=== PATIENT | female | born 1970 | race Caucasian/White ===

== ENCOUNTER 2022-09-08 08:31 | Outpatient (CLI) | payer OTHER, SELFPAY ==
[2022-09-08 14:03] LABS: Basophils Absolute Auto 0.03 K/uL (0.00-0.30); Basophils Percent Auto 0.5 % (0.0-3.0); Eosinophils Absolute Auto 0.09 K/uL (0.00-0.50); Eosinophils Percent Auto 1.4 % (0.0-7.0); Hematocrit 43.4 % (33.0-51.0); Hemoglobin* 14.3 gm/dL (12.0-16.0); Lymphocytes Percent Auto 28.7 % (20-44); Mean Corpuscular HGB Conc 33 gm/dL (32-36); Mean Corpuscular Hemoglobin 29 pg (26-34); Mean Corpuscular Volume 88 fL (80-100); Monocytes Percent Auto 5.7 % (0.0-11.0); Neutrophils Percent Auto 63.7 % (42.0-72.0); Platelet Count* 313 K/uL (140-440); RDW Coefficient of Variation % 12.2 % (11.5-15.5); Red Blood Count 4.91 m/uL (4.00-5.20); White Blood Count* 6.28 K/uL (4.50-11.00)
[2022-09-08 14:09] LABS: Slide Review Reflex No
[2022-09-08 14:14] LABS: Albumin* 4.3 g/dL (3.3-5.0); Chloride* 107 mmol/L (96-114); Potassium* 5.1 mmol/L (3.6-5.1); Sodium* 140 mmol/L (135-149)
[2022-09-08 14:17] LABS: Alanine Aminotransferase* 21 U/L (4-35); Alkaline Phosphatase* 54 U/L (40-150); Aspartate Amino Transferase* 23 U/L (12-35); Bilirubin Total* 0.6 mg/dL (0.1-1.5); Blood Urea Nitrogen* 13 mg/dL (7-30); Calcium* 9.3 mg/dL (8.4-10.6); Carbon Dioxide* 26 mmol/L (20-32); Creatinine* 0.6 mg/dL (0.5-1.5); Estimated Glomerular Filt Rate 109 ml/min; Glucose* 95 mg/dL (60-115); Total Protein* 6.9 g/dL (6.0-8.3)
[2022-09-08 14:28] LABS: Vitamin D 25 Hydroxy* 33 ng/mL (30-80)
[2022-09-09 17:19] LABS: Estradiol Premenol Female 89 pg/mL
[2022-09-10 11:37] LABS: Follicle Stimulating Hormone 21.5 IU/L
[2022-09-10 18:42] LABS: Luteinizing Hormone, Serum 16.2 IU/L
== END 2022-09-08 08:32 | disposition home or self-care (01) ==
PROVIDERS: PCP Family Medicine; Visit Provider Family Medicine
DX: R53.83 Other fatigue (principal); N95.1 Menopausal and female climacteric states; E55.9 Vitamin D deficiency, unspecified
CPT/HCPCS: 80053; 82306; 82670; 82728; 83001; 83002; 84443; 85025

== ENCOUNTER 2024-01-18 12:30 | Outpatient (CLI) | payer BC, SELFPAY ==
--- OUTSIDE RECORDS SUMMARY | 2024-01-18 12:32 | XMS_ITS | Clinical Summary ---
Author Name Unknown Organization [facility] Address [place], [place] [address] Care Team Providers Care Office Workforce Planner Name Role Phone Serene Toussaint NP Primary Care Provider [phone] Allergies Active Allergy Reactions Criticality Noted Date Comments Amoxicillin Rash 11/29/2006 Cefaclor Rash 11/29/2006 Diatrizoate Allergen Vomiting 09/21/2014 Erythromycin Rash 11/29/2006 Levofloxacin Rash 09/25/2014 Cyproheptadine Rash 11/29/2006 Tetracycline Rash 11/29/2006 Medications Medication Sig Dispensed Refills Start Date End Date Status SEMIWEEKLY patch estradiol 0.05 mg/24 hr SEMIWEEKLY transdermal patch Apply 1 Patch on dry, clean, hairless skin. 03/15/2023 Active cyclobenzaprine (FLEXERIL) 5 mg tablet Take 2 Tablets by mouth three times a day as needed for Muscle Spasms 10/19/2023 Active HYDROcodone-acetam inophen (5-325 mg/tablet) Take 1-2 Tablets by mouth every six hours as needed for Pain. Limit acetaminophen to 4000 mg per day from all sources. 10/19/2023 Active celecoxib (CELEBREX) 200 mg capsuleIndications :Lumbar facet arthropathy Take 1 Capsule (200 mg) by mouth two times daily with meals. 60 Capsule 2 12/09/2023 Active Active Problems Problem Noted Date Diagnosed Date Stress incontinence 10/28/2022 Environmental allergies 10/28/2022 Overview: wheat, birch, mugwart, mites oral allergy Has had allergy testing Wheat allergy 10/28/2022 Vitamin D deficiency 03/20/2015 Other and unspecified hyperlipidemia 03/06/2008 Resolved Problems Problem Noted Date Diagnosed Date Resolved Date Otalgia of left ear 11/25/2018 10/28/19 Fibroid 09/24/2014 10/28/2022 Fibroid uterus 09/18/2014 10/28/2022 DUB (dysfunctional uterine bleeding) 09/18/2014 10/28/2022 Tobacco use disorder 10/06/2007 011 Encounters Date Type Department Care Team Description 01/14/2024 Telephone [facility] [address] [place] [address] Humble Lerner MD Questions 01/13/2024 Travel 01/06/2024 Telephone [facility] [address] [place] [address] Humble Lerner MD Results (EMG) 01/04/2024 10:13 AM CDT - 01/04/2024 11:59 PM CDT Hospital Encounter [facility] EMG/EEG/EP [address] [address] Humble Lerner MD Beck, Shasha Lopez MD Foraminal stenosis of lumbar region; Lumbar radiculopathy; Lumbar facet arthropathy; Left leg weakness 01/04/2024 Travel 12/09/2023 9:00 AM CDT Office Visit [facility] [address] [place] [address] Humble Lerner MD Consult (Lumbar back pain/left leg weakness) 12/08/2023 7:30 AM CDT Office Visit [address] [address] Lazara Leigh MD Results (MRI ) 12/08/[address] [address] Serene Toussaint NP Error-please disregard (Please disregard) 12/08/2023 Telephone [facility] [address] [place] [address] Serene Toussaint, SAMANTHA Form (Plan of Care. PT for Left sided Sciatica.) 12/08/2023 Travel 11/04/2023 8:35 AM PBX INSTALLER - 11/04/2023 11:59 PM PBX INSTALLER Hospital Encounter [facility] [address] [place] [address] Lazara Leigh MD Lumbar radiculopathy 11/04/2023 7:30 AM PBX INSTALLER Office Visit [facility] [address] [place] [address] Lazara Leigh MD Hip Pain/problem 11/04/2023 Travel from Last 3 Months Immunizations Name Administration Dates Next Due Hepatitis B (Adult) 04/28/2004 Influenza RIV4 (Age 18+ Year s) PRESERV FREE 09/08/2022 Influenza, IIV4 07/22/2021, 9,06/21/2019, 018,09/26/2014 Influenza, Live, Intranasal Laiv3 06/25/2011 Td (Age >=7 Years) 04/28/2004 Tdap 09/08/2022,04/23/2011 Family History Medical History Relation Name Comments Alcoholism Father Thyroid Disease Maternal Aunt Thyroid cancer Maternal Aunt Cancer Maternal Grandfather rare/ i n neck Diabetes Maternal Grandmother GI Disease Maternal Grandmother celiac sprue Hyperlipidemia Maternal Grandmother Hypertension Maternal Grandmother Thyroid Disease Maternal Grandmother Hypo Diabetes Mother Hypertension Mother Thyroid Disease Mother Hypo, Hashim rashel's Cancer-breast No Family History Relation Name Status Comments Brother Alive Daughter 1 Alive Daughter 2 Alive Father Maternal Aunt Alive Maternal Grandfather Alive Maternal Grandmother Alive Mother Alive Paternal Grandfather Paternal Grandmother Son Alive Social History Tobacco Use Types Packs/Day Years Used Date Smoking Tobacco: Former Cigarettes Q uit: 09/18/2006 Smokeless Tobacco: Never Tobacco Cessation:Counseling Given: Yes Alcohol Use Standard Drinks/Week Comments Yes 0 (1 standard drink = 0.6 oz pur e alcohol) social PHQ-2 Answer Date Recorded PHQ-2 TOTAL SCORE 0 04/06/2023 Social Connections Answer Date Recorded Frequency of Communication with Friends and Fami ly 0 04/06/2023 Financial Resource Strain Answer Date R ecorded Difficulty of Paying Living Expenses 3 04/06/2023 Difficulty of Paying Living Expenses Not on file 04/06/2023 Food Insecurity Answer Date Recorded Worried About Running Out of Food in the Last Ye ar 1 04/06/2023 Transportation Needs Answer Date Record ed Lack of Transportation (Medical) 1 04/06/2023 Housing Stability Answer Date Recorded Unable to Pay for Housing in the Last Year 1 04/06/2023 Sex and Gender Information Value Date Recorded Sex Assigned at Not on file Gender Identity Not on file Sexual Orientation Not on file Obstetrics History Para Term AB IAB SAB Ectopic Multiple Livin g Live Births 1 Date Outcome GA Total Labor Labor/2nd/3rd Weight Sex Delivery Anes PTL Shameka A1 A5 Name Cl in Last Filed Vital Signs Vital Sign Reading Time Taken Comments Blood Pressure 105/74 12/09/2023 9:06 AM CDT Pulse 94 12/09/2023 9:06 AM CDT Temperature 36.6 ??C (97.9 ??F) 07/14/2023 1:51 PM CD T Respiratory Rate 16 07/14/2023 1:51 PM CDT Oxygen Saturation 98% 12/09/2023 9:06 AM CDT Inhaled Oxygen Concentration - - Weight 69.2 kg (152 lb 9.6 oz) 12/09/2023 9:06 A M CDT Height 160 cm (5' 3) 07/12/2023 8:09 PM CDT Body Mass Index 27.03 07/12/2023 8:09 PM CDT Plan of Treatment Upcoming Encounters Date Type Department Care Team (Late st Contact Info) Description 01/18/2024 1:00 PM CDT Office Visit [facility] [address] [facility] [place] [id number] Humble Lerner MD [address] [facility] [address] Arrived 01/31/2024 8:40 AM CDT Office Visit [facility] [address] [place] [address] Humble Lerner MD [address] [facility] [address] Health Maintenance Due Date Last Done Comments Zoster (shingles) series for age 50+ (1 of 2) 2022 COVID-19 vaccine series (2022-24 season) 2023 06/07/2022, 08/06/2021, 12/18/2020, Additional history exists BMI (ht and wt on same day) for age 18+ 04/06/2024 04/06/2023, 10/28/2022, 04/02/2019, Additional history exists Depression screening for age 12+ 04/06/2024 04/06/2023, 04/06/2023, 10/28/2022, Additional history exists Mammogram for age 45-75 04/07/2024 04/07/20 23, 02/24/2013 (Completed outside of [facility]) Influenza for age 50-64 05/21/2024 09/08/20, 07/22/2021, 07/01/2019, Additional history exists Lipids for age 45-75 04/06/2028 04/06/2023, 09/25/2008, 03/06/2008 Tetanus booster 09/08/2032 09/08/2022, 08/12/2010, 04/28/2004 Colonoscopy through age 75 12/09/203212/09, 10/20/2010, 10/20/2010, Additional history exists Pap test for age 21-65 Discontinued 05/11/2012 Tdap Completed 09/08/2022, 04/23/2011 HIV for age 15-65 Completed 04/06/2023 Hepatitis C screening for age 18-79 Completed 04/06/2023 Pneumococcal series for age 6-64 Aged Out No longer eligible based on patient's age to complete this topic Medical Devices Implanted Type Area Sandwich Artist Device Identifier Shelf Expiration Date Model / Serial / Lot Sling Pelvic Advantage Fit Blue - [id number] Implanted:Qty: 1 on 12/24/2022 by Kenny Young MD at [facility] N/A: Pelvis [employer] [facility] 08/04/2025 [id number] / / [id number] Procedures Procedure Name Priority Date/Time Associated Diagnosis Comments AMB EPIDURAL STEROID INJECTION Routine 01/18/2024 8:01 AM CDT Lumbar radiculopathy Lumbar facet arthropathy Left leg weakness Foraminal stenosis of lumbar region EMG Routine 01/04/2024 Foraminal stenosis of lumbar region Lumbar radiculopathy Lumbar facet arthropathy Left leg weakness MR SPINE LUMBAR WO STAT 11/04/2023 8: 55 AM PBX INSTALLER Lumbar radiculopathy XR MAMMO WHIT BILAT SCREEN Routine 04/07/2023 1:17 PM CDT Encounter for screening mammogram for malignant neoplasm of breast LC HIV-1/O/2, 4TH GENERATION Routine 04/06/2023 9:19 AM CDT Screening for HIV (human immunodeficiency virus) LC HCV ANTIBODY RFX TO QUANT PCR Routine 04/06/2023 9:19 AM CDT Encounter for hepatitis C screening test for low risk patient LIPID PANEL W REFLEX MEASURED LDL Routine 04/06/2023 9:19 AM CDT Routine general medical examination at a health care facility COLONOSCOPY 12/09/2022 10:33 AM CDT from Last 3 Months or Most Recently Relevant to Health Maintenance Results * EMG (01/04/2024) Humble Lerner MD NEUROLOGY ORD * MR SPINE LUMBAR WO (11/04/2023 8:55 AM PBX INSTALLER) Anatomical Region Laterality Modality Spine, LUMBAR SPINE Magnetic Res onance Narrative 11/04/2023 9:56 AM PBX INSTALLER Indication Weakness. Technique Multiplanar, multisequence MRI of the lumbar spine was performed without intravenous contrast. Comparison Lumbar spine radiographs 06/30/2023. Findings There are 5 lumbar-type vertebral segments identified. ??The vertebral heights are maintained without evidence of fracture. ??No discrete T1 hypointense marrow infiltrating process. Edema involving the L5 pedicles and L5-S1 facets suggestive of reactive degenerative process or stress injury. The conus medullaris terminates at L1, normal. ??The cauda equina nerve roots appear unremarkable. T12-L1: No spinal canal or neuroforaminal narrowing. L1-2: No spinal canal or neuroforaminal narrowing. L2-3: No spinal canal or neuroforaminal ring. ??Mild facet arthropathy. L3-4: No spinal canal or neuroforaminal narrowing. ??Mild facet arthropathy. L4-5: Disc degeneration. ??Minimal disc bulge without spinal canal narrowing. ??No neural foraminal narrowing. ??Mild facet arthropathy. L5-S1: Disc degeneration. ??Minimal disc bulge without spinal canal narrowing. ??Mild neuroforaminal narrowing. ??Moderate facet arthropathy. Impression At L5-S1, mild neuroforaminal narrowing. Edema involving the L5 pedicles and L5-S1 facets suggestive of reactive degenerative process or stress injury. Mild multilevel facet arthropathy. Lazara Leigh MD MR * XR MAMMO WHIT BILAT SCREEN (04/07/2023 1:17 PM CDT) Anatomical Region Laterality Modality BREASTS, Breast Left, Breast Right Bilateral Mammography Impressions 04/08/2023 8:13 AM CDT ??There is no radiographic evidence for malignancy. ??Recommend annual mammograms. MAMMOGRAM ASSESSMENT: ??ACR 1 Negative PATIENTS: You will also receive a letter with your examination results in an easy to read format. ??If you have questions about your results, please contact your referring provider. Narrative 04/08/2023 8:13 AM CDT For Patients: As a result of the 21st Century Cures Act, medical imaging exams and procedure reports are released immediately into your electronic medical record. You may view this report before your referring provider. If you have questions, please contact your health care provider. XR MAMMO WHIT BILAT SCREEN [[id number]] CLINICAL HISTORY: ??This is an asymptomatic 52 y.o. patient. INDICATION FOR EXAM: Mammogram Screening. TECHNIQUE: CC & MLO views were obtained. ??This study was evaluated with the assistance of Computer-Aided Detection. Breast Tomosynthesis was used in interpretation. COMPARISON FILM: Priors not available at the time of this report. ? FINDINGS: ??The breasts are heterogeneously dense, which may obscure small masses. There are no dominant masses, suspicious micro calcifications or areas of architectural distortion. Serene Toussaint NP MAMMO * LC HCV ANTIBODY RFX TO QUANT PCR (04/06/2023 9:19 AM CDT) [facility] HCV Ab Non Reactive Non Reactive 04/08/2023 12:08 PM CDT [facility] (CET) Blood BLOOD SPECIMEN / Unknown Venipuncture / Unknown 04/06/2023 9:19 AM CDT 04/06/2023 9:22 AM CDT [facility] (CET) - 04/08/2023 12:08 PM CDT Performed at: ??[address] ??[id number] Ship'S Engineer: Benjamin Chand MD, Phone: ??[phone] Serene Toussaint NP LABORATORY [facility] (CET) [address] [place] [address], * LC HIV-1/O/2, 4TH GENERATION (04/06/2023 9:19 AM CDT) [facility] HIV Scr 4th Gen Non Reactive Non Reactive 04/08/2023 1:10 PM CDT [facility] (CET) Comment: HIV Negative HIV-1/HIV-2 antibodies and HIV-1 p24 antigen were NOT detected. There is no laboratory evidence of HIV infection. Blood BLOOD SPECIMEN / Unknown Venipuncture / Unknown 04/06/2023 9:19 AM CDT 04/06/2023 9:22 AM CDT [facility] TEST[facility] (CET) - 04/08/2023 1:10 PM CDT Performed at: ??[address] - [address] ??[id number] Ship'S Engineer: Benjamin Chand MD, Phone: ??[phone] Serene Toussaint NP LABORATORY [facility] (CET) [facility] [address] * (ABNORMAL) LIPID PANEL W REFLEX MEASURED LDL (04/06/2023 9:19 AM CDT) CHOLESTEROL,TOTAL 249(H) 100 - 199 mg/dL 04/06/2023 9:57 AM [facility] TRIGLYCERIDES 197(H) <150 mg/dL 04/06/2023 9:57 AM [facility] HDL CHOLESTEROL 49 >40 mg/dL 9:57 AM T [facility] NON-HDL CHOLESTEROL 200(H) <145 mg/dl 04/06/2023 9:57 AM [facility] CHOL/HDL RATIO 5.08(H) <4.50 04/06/2023 9:57 AM [facility] LDL CHOLESTEROL 161(H) <=130 mg/dL 04/06/2023 9:57 AM [facility] VLDL CHOLESTEROL 39(H) <=30 mg/dL 04/06/2023 9:57 AM T [facility] PROVIDER ORDERED STATUS RANDOM 04/06/2023 9:57 AM T [facility] Blood BLOOD SPECIMEN / Unknown Venipuncture / Unknown 04/06/2023 9:19 AM CDT 04/06/2023 9:22 AM CDT Serene Toussaint NP CHEMISTRY [facility] [address] [place] [address] * COLONOSCOPY (12/09/2022 10:33 AM CDT) 12/09/2022 10:3 3 AM CDT Narrative Transcriptions Serene Abdul DO - 12/09/2022 3:19 PM CDT Patient Name: Peggy He Procedure Date: 12/09/2022 Gender: Female Date of : 1970 Admit Type: Ambulatory Procedure: Colonoscopy Proceduralist: Serene Abdul MD Indications/Pre-Op Diagnosis: Screening for colorectal malignantneoplasm Medications: Propofol per Anesthesia, MonitoredAnesthesia Care Procedure Description: The patient had risks, benefits and alternatives explained to andgave informed consent. The patient had a stable cardiopulmonary status and judged an adequate candidate for conscious sedation. The endoscope [id number] was passed through the anus andadvanced to the cecum, identified by appendiceal orifice and ileocecal valve.The colonoscopy was performed without difficulty. The patient toleratedthe procedure well. The quality of the bowel preparation was good. The ileocecal valve, appendiceal orifice, and rectum were photographed. Complications: No immediate complications. Estimated blood loss: Minimal. Estimated Blood Loss & Specimen: Estimated blood loss was minimal. Specimen collected - Yes and sent to Laboratory Findings: The perianal and digital rectal examinations were normal. Pertinent negatives include normal sphincter tone, no anal lesion orabnormality and normal stool Hemoccult. A 3 mm polyp was found in the rectum. The polyp wassemi-pedunculated. The polyp was removed with a hot biopsy forceps. Resection andretrieval were complete. Verification of patient identification for thespecimen was done. Estimated blood loss was minimal. Multiple small and large-mouthed diverticula were found in thesigmoid colon. No biopsies or other specimens were collected for this exam. Impressions/Post-Op Diagnosis: - One 3 mm polyp in the rectum, removed with a hot biopsy forceps. Resected and retrieved. - Diverticulosis in the sigmoid colon. No specimens collected. Recommendation: - Discharge patient to home (ambulatory). - Resume previous diet. - Continue present medications. - Await pathology results. - Repeat colonoscopy in 5-10 years for surveillance based onpathology results. Serene Abdul MD 12/09/2022 3:19:14 PM This report has been signed electronically. Note Initiated On: 12/09/2022 10:33 AM Serene Abdul DO PROCEDURE ORD from Last 3 Months or Most Recently Relevant to Health Maintenance Advance Directives * Full Code (Latest Code Status on File) Date Activated Date Inactivated Comments 12/24/2022 7:33 AM 12/24/2022 2:41 PM Question Answer Comments Code Status Discussion: Reviewed Preferences * Full Code Date Activated Date Inactivated Comments 12/09/2022 9:47 AM 12/09/2022 2:35 PM Question Answer Comments Code Status Discussion: Discussed * Full Code Date Activated Date Inactivated Comments 09/25/2014 11:33 AM 09/26/2014 12:28 PM * Full Code Date Activated Date Inactivated Comments 09/25/2014 5:59 AM 09/25/2014 6:59 AM * Full Code Date Activated Date Inactivated Comments 03/09/2011 1:30 PM 03/09/2011 10:00 PM Care Teams Office Workforce Planner Relationship Specialty Start Date End Date Serene Toussaint NP [address] [place] [address] PCP - General Nurse Practitioner - Family 07/12/23
--- OUTSIDE RECORDS SUMMARY | 2024-01-18 12:32 | XMS_ITS | Continuity of Care Document ---
Author Name Unknown Organization [facility] Address [address] [place] [address] Phone Care Team Providers Care Rotor Pilot Name Role Phone Josué Mcintosh MD Unavailable Unavailable Advance Directives Directive Yes / No Effective Date File Name No Information Encounters Encounter Description Practice Location Reason(s) For Visit Diagnoses Date Provider Providers Copied on Encounter [facility], [address], [place], [address], [place] tel:[phone] [facility], No Information Dec-0 [phone] 0 Arnaldo Moses. [facility] [address], [place], [address], [place]. tel:[phone] Family History Family Member Type Diagnosis Age At Onset No Information Payers Payer name Insurance type Covered democrat ID Authoriza tion(s) No Information Social History Type Description Quantity Date Captured Comments Sex Female Smoking Status No Information Chief Complaint And Reason For Visit No Information Reason For Referral Reason For Referral No Information History Of Present Illness Encounter Date Complaint History Of Prese nt Illness No Information Functional Status Date Functional Assessmen t No Information Instructions Date Instruction Additional Infor mation No Information Assessments Type Assessment Date No Information Patient Care Teams Name Effective Dates (start - stop) Status Members No Information
--- OUTSIDE RECORDS SUMMARY | 2024-01-18 12:32 | XMS_ITS | Clinical Summary ---
Author Name Unknown Organization [facility] Address [address] [place] [address] Care Team Providers Care Stage Technician Name Role Phone Pcp, Pt Declines MD Primary Care Provider [phone] Source Comments You are receiving this document as you are listed as the primary care provider,follow-up provider, or the patient has been referred to you for consultation.This is in compliance with the Medicare and[facility] Hospital[facility] EHR Incentive Program,which states Providers who transition their patient to another setting of careor provider of care or refers their patient to another provider of care shouldprovide summary care record for each transition of care or referral. SPIL GAMES Allergies Active Allergy Reactions Criticality Noted Date Comments Amoxicillin Rash 11/29/2006 Cefaclor Rash 11/29/2006 Cyproheptadine Rash 11/29/2006 Diatrizoate 09/21/2014 Other reaction(s): Vomiting Erythromycin Rash 11/29/2006 Homeopathic Products Runny Nose 11/29/2006 Levofloxacin Rash 09/25/2014 Tetracycline Rash 11/29/2006 Medications Medication Sig Dispensed Refills Start Date End Date Status cetirizine HCl (ZYRTEC) 10 MG chewable tablet Chew and swallow 1 Tablet (10 mg) by mouth once as needed. Active fluticasone propionate (FLONASE) 50 MCG/ACT nasal solution 2 Sprays by Nasal route once as needed. Active Lactobacillus Rhamnosus, GG, (CULTURELLE KIDS) CHEW Chew and swallow 1 Tablet by mouth. 10/28/2022 Active Sodium Caprylate Take 1 Capsule by mouth daily before breakfast. 10/28/2022 Active Active Problems No known active problems Family History Relation Name Status Comments Father Mother Alive Social History Tobacco Use Types Packs/Day Years Used Date Smoking Tobacco: Never Smokeless Tobacco: Never Tobacco Cessation:Counseling Given: Not Answered Sex and Gender Information Value Date Recorded Sex Assigned at Not on file Gender Identity Not on file Sexual Orientation Not on file Last Filed Vital Signs Vital Sign Reading Time Taken Comments Blood Pressure 124/77 04/03/2019 9:52 AM CDT Pulse - - Temperature 36.6 ??C (97.8 ??F) 02/19/2023 1:25 PM CD T Respiratory Rate - - Oxygen Saturation - - Inhaled Oxygen Concentration - - Weight 65.8 kg (145 lb) 02/19/2023 1:25 PM CDT Height 157.5 cm (5' 2) 02/19/2023 1:25 PM CDT Body Mass Index 26.52 02/19/2023 1:25 PM CDT Plan of Treatment Health Maintenance Due Date Last Done Comments Cervical Cancer Screening Due 1970 Colon Cancer Screening Plan Due 1970 Diabetes Screening- (based on age and BMI) 1970 Hep C Screening (Preventive Services) 1970 Mammogram 1970 HIV Screening (Preventive Services) 1988 Adult Preventive Visit 1990 HepB (1) 1991 Cholesterol 2017 Zoster/Shingles (1 of 2) 2022 COVID-19 Vaccine ( season) 2023 12/18/2020, 11/27/2020 Influenza (#1) 2023 07/22/2021, 06/20, 07/02/2018, Additional history exists DTaP/Tdap/Td (3 - Tdap) 09/08/2032 09/08/20, 04/23/2011, 04/28/2004 HepA Aged Out No longer eligi ble based on patient's age to complete this topic Hib Aged Out No longer eligi ble based on patient's age to complete this topic IPV (Polio) Aged Out No longer eligi ble based on patient's age to complete this topic MCV4 Aged Out No longer eligi ble based on patient's age to complete this topic Pneumococcal Aged Out No longer eligi ble based on patient's age to complete this topic Care Teams Stage Technician Relationship Specialty Start Date End Date Pcp, [place] [address] PCP - General 04/03/19
== END 2024-01-18 12:31 | disposition home or self-care (01) ==
LOC: INJ CL 12:31
PROVIDERS: PCP Family Medicine; Visit Provider Family Medicine
DX: M54.16 Radiculopathy, lumbar region (principal)
CPT/HCPCS: 64483; J1100; Q9966

== ENCOUNTER 2024-06-06 07:56 | Outpatient (CLI) | payer BC, SELFPAY ==
--- OUTSIDE RECORDS SUMMARY | 2024-06-06 07:59 | XMS_ITS | Clinical Summary ---
Author Organization [employer] Address [address] [place] [address] Care Team Providers Care Clay Transporter Name Role Phone Pcp, Pt Declines MD Primary Care Provider Source Comments You are receiving this document as you are listed as the primary care provider,follow-up provider, or the patient has been referred to you for consultation.This is in compliance with the Medicare and[facility] EHR Incentive Program,which states Providers who transition their patient to another setting of careor provider of care or refers their patient to another provider of care shouldprovide summary care record for each transition of care or referral. [employer] Allergies Active Allergy Reactions Criticality Noted Date [...] Active Active Problems No known active problems Encounters Date Type Department Care Team Description 06/05/2024 7:00 AM CDT Therapy [facility], Physical Therapy [address] [facility] [address] Sissy Faust, PT Lumbar pain (Primary Dx) 05/29/2024 7:00 AM CDT Therapy [facility] [address] [facility] [place] [address] Sissy Faust, PT Lumbar pain (Primary Dx) 05/15/2024 7:00 AM CDT Therapy [facility], Physical Therapy [address] [facility] [address] Sissy Faust, PT Lumbar pain (Primary Dx) 05/10/2024 7:00 AM CDT Therapy [facility], Physical Therapy [address] [facility] [place] [address] Sissy Faust, PT Lumbar pain (Primary Dx) 04/17/2024 7:00 AM CDT Therapy [facility], Physical Therapy [address] [facility] [place] [address] Sissy Faust, PT Lumbar pain (Primary Dx) 04/03/2024 7:00 AM CDT Therapy [facility] [address] [facility] [place] [address] Sissy Faust, PT Lumbar pain (Primary Dx) 03/27/2024 7:00 AM CDT Therapy [facility], Physical Therapy [address] [facility] [place] [address] Sissy Faust, PT Lumbar pain (Primary Dx) 03/20/2024 7:00 AM CDT Therapy [facility] Therapy [address] [facility] [place] [address] Sissy Faust, PT Lumbar pain (Primary Dx) 03/13/2024 7:00 AM CDT Therapy [facility], Physical Therapy [address] [place] [address] Sissy Faust, PT Lumbar pain (Primary Dx) from Last 3 Months Family History Relation Name Status Comments Father [...] 02/19/2023 1:25 PM CDT Plan of Treatment Upcoming Encounters Date Type Department Care Team (Late st Contact Info) Description 06/12/2024 7:00 AM CDT Appointment [facility], Physical Therapy [address] [place] [address] Sissy Faust, PT [address] [facility] [address] [place] [address] 06/19/2024 7:00 AM CDT Appointment [facility], Physical Therapy [address] [place] [address] Sissy Faust PT [address] [place] [address] 06/26/2024 7:00 AM CDT Appointment [facility], Physical Therapy [address] [place] [address] Sissy Faust PT [address] [facility] [address] [place] [address] 07/03/2024 7:00 AM CDT Appointment [facility], Physical Therapy [address] [place] [address] Sissy Faust, PT [address] [place] [address] 07/19/2024 7:00 AM CDT Appointment [facility], Physical Therapy [address] [place] [address] Sissy Faust, PT [address] [place] [address] Health Maintenance Due Date Last Done Comments Cervical Cancer Screening Due 1972 Colon Cancer Screening Plan Due 1972 Hep C Screening (Preventive Services) 1972 HIV Screening (Preventive Services) 1988 Adult Preventive Visit 1990 HepB (1) 1991 Cholesterol 2017 Zoster/Shingles (1 of 2) 2022 Mammogram 04/07/2024 04/07/2023 COVID-19 Vaccine (3 - season) 2024 12/18/2020, 11/27/2020 Influenza (#1) 2024 07/22/2021, 06/20, 07/02/2018, Additional history exists DTaP/Tdap/Td [...] age to complete this topic Care Teams Clay Transporter Relationship Specialty Start Date End Date Pcp, Pt Rc, [place] [address] PCP - General 04/03/19
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
--- OUTSIDE RECORDS SUMMARY | 2024-06-06 07:59 | XMS_ITS | Encounter Summary ---
Author Organization [employer] Address [address] [place] [address] Care Team Providers Care Enforcement Officer Name Role Phone Pcp, Pt Declines MD Primary Care Provider [phone] Reason for Visit * Reason Comments Spine Lumbar Encounter Details Date Type Department Care Team (Late st Contact Info) Description 06/05/2024 7:00 AM CDT Therapy [facility], Physical Therapy [address] [place] [place] [address] Sissy Faust, PT [address] [place] [address] Lumbar pain (Primary Dx) Social History Tobacco Use Types Packs/Day Years Used Date Smoking Tobacco: Never Smokeless Tobacco: Never Sex and Gender Information Value Date Recorded Sex Assigned at Not on file Gender Identity Not on file Sexual Orientation Not on file documented as of this encounter Progress Notes * Sissy Faust, PT - 06/05/2024 7:00 AM CDT [facility] Physical Therapy Daily Note Visit Number: 9 [employer] [place] Initial Certification Period: 03/13/2024 to [...] decided to come to physical therapy at [facility] due to having labeling specialist PTs. She did [employer]'s double marathon over the weekend. Her house [...] Patient reports that the nerve pain has continued. She is getting more numbness andpain. Patient met with a surgeon last week. They did x- rays that showed a L5-S1 anterior spondylolisthesis. She's scheduled for an injection next week. She hasn't done has much physical therapy and strength workouts due to having increased nerve pain.She was having nerve pain with seated lumbar flexion, sitting and standing this week as well. She did a 15 mile run this weekend. She got new carbon plate shoes. Pain is located in the left buttock and radiates down her left posterolateral leg to the ankle. She has a 24 hour trail marathon Wednesday. Races: 24 hour trail run in Jun 09, [facility] Jun 24, end of Jun OBJECTIVE: Today's [...] (L1, 2): 4/5 Ankle dorsiflexion (L4): 3+/5 TREATMENT TODAY: Therapeutic Exercise (CPT 60919) x 25 minutes: Utilized for the purpose of improving strength, ROM,endurance, and/or flexibility: Access Code: [email or web address] Subjective report and objective measures Exercises - Child's Pose Stretch - multifidus step outs with pallof press 7lbs - stopped due to nerve pain - Sciatic nerve glide in supine - Cat-cow - Single leg running balance - Prone Transversus Abdominus Contraction with Small Hip Extension Pillow under stomach - 10 reps - Reformer Lateral slide outs 2 x 10 each side, 1 spring Not today: - standing clam - blue band 3 x 30 seconds each side - B resisted shoulder extension - blue band - Thakur's Carry unilateral with 15lbs - Bridge november - Donkey kicks, 2 x 10 each side, 1.25 springs Self Care/ Home Management (CPT 08930) x 15 minutes: Discussion of when to stop activity - pain monitoring Education regarding spondy Discussion or walking vs running and that walking may cause increased lumbar extension Manual therapy, 1 or more regions (CPT 00384) x 15 minutes: Utilized for the purpose of increasing joint mobility, range of motion, and decreasing pain and soft tissue restrictions. Thoracic PA glides, T4-T12, grade III and IV Right sidelying lumbar opening and distraction mobilization, grade III Timed Code Treatment Minutes: 55 Total Treatment Minutes: 55 ASSESSMENT: Peggy presents to physical therapy with continued lumbar symptoms and left lower extremity symptoms. Left lower extremity nerve pain continues with more tingling in left lower extremity this week. Had increased nerve pain with single leg running balance - improved with child's pose. Reported fatigue with Reformer activities. She will continue to benefit from skilled [...] weeks. Therapist: Sissy Faust PT 7:01 AM 06/05/2024 documented in this encounter Plan of Treatment Upcoming Encounters Date Type Department Care Team (Late st Contact Info) Description 06/12/2024 7:00 AM CDT Appointment [facility], Physical Therapy [address] [place] [address] Sissy Faust PT [address] [place] [address] 06/19/2024 7:00 AM CDT Appointment [facility], Physical Therapy [address] [place] [address] Sissy Faust PT [address] [place] [address] 06/26/2024 7:00 AM CDT Appointment [facility], Physical Therapy [address] [place] [address] Sissy Faust PT [address] [place] [address] 07/03/2024 7:00 AM CDT Appointment [facility], Physical Therapy [address] [place] [address] Sissy Faust, PT [address] [place] [address] 07/19/2024 7:00 AM CDT Appointment [facility], Physical Therapy [address] [place] [place] [address] Sissy Faust, PT [address] [place] [address] documented as of this encounter Visit Diagnoses Diagnosis Lumbar pain- Primary Lumbago documented in this encounter Care Teams Enforcement Officer Relationship Specialty Start Date End Date Pcp, [place] [address] PCP - General 04/03/19 documented as of this encounter
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
--- OUTSIDE RECORDS SUMMARY | 2024-06-06 08:00 | XMS_ITS | Continuity of Care Document ---
Author Organization [facility] Address [address] [place] [address] Phone Care Team Providers Care Change Management Facilitator Name Role Phone Josué Mcintosh MD Unavailable Unavailable Advance Directives Directive Yes / No Effective Date File Name No Information Encounters Encounter Description Practice Location Reason(s) For Visit Diagnoses Date Provider Providers Copied on Encounter [facility], [address], [place], [address], [place] tel:[phone] [facility], No Information Dec-0 6-201 0 Arnaldo Moses. [facility] [address], [place], [address], [place]. tel:[phone] Family History Family Member Type Diagnosis Age At Onset No Information Payers Payer name Insurance type Covered alliance party ID Authoriza tion(s) No Information Social History [...]
--- OUTSIDE RECORDS SUMMARY | 2024-06-06 08:00 | XMS_ITS | Continuity of Care Document ---
Author Organization [facility] Address [address] [place] [address] Phone Care Team Providers Care Predator Control Trapper Name Role Phone Diana Brewer Unavailable Unavaila ble Allergies, Adverse Reactions, Alerts Substance Reaction Status Criticality Penicillins Hives, Dermatitis Active No Informa tion Medications Medication Instructions Dosage Effective Dates (start - stop) Status Comments CELECOXIB (unknown strength) Not Available - Active Advance Directives Directive Yes / No Effective Date File Name No Information Encounters Encounter Description Practice Location Reason(s) For Visit Diagnoses Date Provider Providers Copied on Encounter [facility] , [address], [place], [place], [id number], [place] tel:[phone] [facility] Spondylolisth esis, lumbosacral regionRadicul opathy, lumbar region Don Ortiz. [facility], [address] [place] [address] [address], [place], [address], [place]. tel:[phone] Referring Provider: Humble Beckett, [facility] [address], [place], [address]. tel:[phone] Family History Family Member Type Diagnosis Age At Onset Mother Problem (finding) Diabetes mellitus Payers Payer name Insurance type Covered green party ID Authoriza tikaren(s) [facility] [id number] [id number] Social History Type Description Quantity Date Captured Comments Alcohol Use Details Caffeine Use Details Unknown Tobacco Use Status Smoking Status Former smoker Smoking Tobacco Use Details Cigarette: Age Started: 20, Age Stopped: 42, Years Used 24 Cigarette: No Details Available Non-Smoking Tobacco Use Details : No Details Available : No Details Available Sex Female Vital Signs Date / Time: Height Weight BMI Pulse Rate Blood Pressure Temperature Respiratory Rate Body Surface Area Head Circumference Head Circ. Percentile Wt./Matthew. Percentile BMI percentile Pulse Ox Inhaled Ox 11:36 AM 62.00 in 62.732 kg (138.30 lbs) 25.2 9 kg/m eter (2) Chief Complaint And Reason For Visit No Information Reason For Referral Reason For Referral No Information Plan Of Treatment Date Type Action Status Appointment Peggy Guy History Of Present Illness Encounter Date Complaint History Of Prese nt Illness No Information Functional Status Date Functional Assessmen t No Information Instructions Date Instruction Additional Infor mation No Information Assessments Type Assessment Date assessment Spondylolisthesis, lumbosacral r egion assessment Radiculopathy, lumbar region May Patient Care Teams Name Effective Dates (start - stop) Status Members No Information
--- OUTSIDE RECORDS SUMMARY | 2024-06-06 08:00 | XMS_ITS | Clinical Summary ---
Author Organization [facility] Address [place], [place] [address] Care Team Providers Care Java Spring Developer Name Role Phone Serene Toussaint NP Primary Care Provider Allergies Active Allergy Reactions Criticality Noted Date Comments Amoxicillin Rash 11/29/2006 Cefaclor Rash 11/29/2006 Diatrizoate Allergen Vomiting 09/21/2014 Erythromycin Rash 11/29/2006 Levofloxacin Rash 09/25/2014 Cyproheptadine Rash 11/29/2006 Tetracycline Rash 11/29/2006 Wheat Itching 11/23/2022 Medications Medication Sig Dispensed Refills Start Date End Date Status SEMIWEEKLY patch estradiol 0.05 mg/24 hr SEMIWEEKLY transdermal patch Apply 1 Patch on dry, clean, hairless skin. 03/15/2023 Active ondansetron (ZOFRAN ODT) 4 mg disintegrating tabletIndications:Jamal sea Place 1 Tablet (4 mg) on the tongue every 8 hours if needed for Nausea/Vomiting. 10 Tablet 02/18/2024 Active celecoxib (CELEBREX) 200 mg capsuleIndications:Radha mbar facet arthropathy TAKE 1 CAPSULE(200 MG) BY MOUTH TWICE DAILY WITH MEALS 60 Capsule 2 03/08/2024 Active CARPENTER MOLD Thyroid 60 mg tablet Take 60 mg by mouth. 05/01/2024 Active medication order composer Testerone pellet, inserted in the hip 05/11/2024 Active medication order composer Vitamin B12 weekly injection 05/11/2024 Active LORazepam (ATIVAN) 1 mg tabletIndications:Anx iety due to invasive procedure Take 1 Tablet (1 mg) by mouth one time for 1 dose. 1 Tablet 05/16/2024 Active Active Problems Problem Noted Date Diagnosed Date Stress incontinence 10/28/2022 Environmental allergies 10/28/2022 Overview (10/28/2022): wheat, birch, mugwart, mites oral allergy Has had allergy testing Wheat allergy 10/28/2022 Vitamin D deficiency 03/20/2015 Other and unspecified hyperlipidemia 03/06/2008 Resolved Problems Problem Noted Date Diagnosed Date Resolved Date Otalgia of left ear 11/25/2018 10/28/19 23 Fibroid 09/24/2014 10/28/2022 Fibroid uterus 09/18/2014 10/28/2022 DUB (dysfunctional uterine bleeding) 09/18/2014 10/28/2022 Tobacco use disorder 10/06/2007 011 Encounters Date Type Department Care Team Description 05/31/2024 11:15 AM CDT Ancillary Procedure [facility] [address] [place] [address] 05/31/2024 Travel 05/26/[address] [facility] [address] [place] [address] Marcos Cervantes MD <No scans attached> 05/25/2024 Telephone [facility] [address] [place] [address] Bogdan Elmore MD Follow Up 05/22/2024 Telephone [facility] [address] [place] [address] Bogdan Elmore MD Results 05/20/2024 10:39 AM CDT - 05/20/2024 4:04 PM CDT Emergency [facility] [address] [place] [address] Cameron Germain, Dyspnea, unspecified type (Primary Dx); Chest discomfort Discharge Disposition: Home Self Care 05/20/2024 Travel 05/17/2024 10:50 AM CDT - 05/17/2024 11:59 PM CDT Hospital Encounter [facility] [address] [place] [address] Humble Lerner MD Lumbar facet arthropathy; Foraminal stenosis of lumbar region; Lumbar radiculopathy; Left leg weakness 05/17/2024 Travel 05/16/2024 Telephone [facility] [address] [facility] [place] [address] Humble Lerner MD Medication Management (Medication for MRI) 05/11/2024 9:00 AM CDT Orders Only [address] [place] [address] Lab, [facility] 05/11/2024 7:40 AM CDT Office Visit [address] [address] Humble Lerner MD Musculoskeletal Problem (Follow up back pain, SKYLAR on 01/18/24) 05/11/2024 Travel 05/09/2024 Orders Only [facility] Scanner 1 scan: (1-Ord) INCOMING RECORDS-DIAGNOSTIC TEST, [facility], 05/09/2024 05/08/2024 Telephone [facility] [address] [place] [address] Bogdan Elmore MD Form 05/08/2024 Telephone [facility] [address] [place] [address] Bogdan Elmore MD Results 05/01/2024 8:40 AM CDT Office Visit [address] [address] Bogdan Elmore MD Consult (Enviromental allergies) 05/01/[address] [address] Humble Lerner MD Referral (Insurance referral only) 05/01/2024 Travel 03/08/2024 Medical Messaging [facility] [address] [place] [address] Humble Lerner MD PT order follow up 03/07/[address] [address] Humble Lerner MD Refill Request (Celecoxib) from Last 3 Months Immunizations Name Administration Dates Next Due Hepatitis B (Adult) 04/28/2004 Influenza RIV4 (Age 18+ Year s) PRESERV FREE 09/08/2022 Influenza, IIV4 07/22/2021, 9,06/21/2019, 018,09/26/2014 Influenza,LAIV3 Live Intrana nilam (Flumist) 06/25/2011 Td (Age >=7 Years) 04/28/2004 Tdap [...] of Communication with Friends and Fami ly Not on file 04/07/2024 Financial Resource Strain Answer Date R ecorded [...] on file Sexual Orientation Not on file Travel History Travel Start Travel End [place] 05/03/2024 05/07/2024 Obstetrics History Para Term AB IAB SAB Ectopic Multiple Livin g Live Births 1 Date Outcome GA Total Labor Labor/2nd/3rd Weight Sex Type Anes PTL Shameka A1 A5 Name Clin Last Filed Vital Signs Vital Sign Reading Time Taken Comments Blood Pressure 108/85 05/20/2024 4:00 PM CDT Pulse 78 05/20/2024 1:00 PM CDT Temperature 36.9 ??C (98.4 ??F) 05/20/2024 10:43 AM C DT Respiratory Rate 18 05/20/2024 10:43 AM CDT Oxygen Saturation 98% 05/20/2024 1:00 PM CDT Inhaled Oxygen Concentration - - Weight 61.2 kg (135 lb) 05/20/2024 10:43 AM CDT Height 160 cm (5' 3) 05/20/2024 10:43 AM CDT Body Mass Index 23.91 05/20/2024 10:43 AM CDT Plan of Treatment Upcoming Encounters Date Type Department Care Team (Late st Contact Info) Description 06/06/2024 8:20 AM CDT Office Visit [facility] [address] [place] [address] Humble Lerner MD [address] [place] [address] 08/14/2024 8:00 AM SYSTEM SUPPORT SPECIALIST Office Visit [facility] [address] [place] [address] Humble Lerner MD [address] [place] [address] Health Maintenance Due Date Last Done Comments Zoster (shingles) series for age 50+ (1 of 2) 2022 BMI (ht and wt on same day) for age 18+ 04/06/2024 04/06/2023, 10/28/2022, 04/02/2019, Additional history exists Depression screening for age 12+ 04/06/2024 04/06/2023, 04/06/2023, 10/28/2022, Additional history exists Mammogram for age 45-75 04/07/2024 04/07/20 23, 02/24/2013 (Completed outside of [facility]) COVID-19 vaccine series ( - 2022-24 season) 2024 06/07/2022, 08/06/2021, 12/18/2020, Additional history exists Influenza for age 50-64 05/21/2024 09/08/20, 07/22/2021, 07/01/2019, Additional history exists Lipids for age 45-75 04/06/2028 04/06/2023, 09/25/2008, 03/06/2008 Tetanus booster 09/08/2032 09/08/2022, 12/2010, 04/28/2004 Colonoscopy through age 75 12/09/203212/09, 10/20/2010, 10/20/2010, Additional history exists Pap test for age 21-65 Discontinued 05/11/2012 Tdap Completed 09/08/2022, 04/23/2011 HIV for age 15-65 Completed 04/06/2023 Hepatitis C screening for age 18-79 Completed 04/06/2023 Pneumococcal series for age 6-64 Aged Out No longer eligible based on patient's age to complete this topic Medical Devices Implanted Type Area Curator Of Photography And Prints Device Identifier Shelf Expiration Date Model / Serial / Lot Sling Pelvic Advantage Fit Blue - [id number] Implanted:Qty: 1 on 12/24/2022 by Kenny Young MD at [facility] N/A: [place] [facility] [place] [facility] 08/04/2025 [id number] / / [id number] Procedures Procedure Name Priority Date/Time Associated Diagnosis Comments XR SPINE LUMBAR MINIMUM 4 VIEWS Routine 05/31/2024 11:54 AM CDT Pain of lumbar spine XR CHEST 2 VIEWS PA AND LATERAL STAT 05/20/2024 2:02 PM CDT TROPONIN T (HS) ONE TIME Timed 05/20/2024 12:59 PM CDT CBC WITH AUTO DIFFERENTIAL STAT 05/20/2024 10:56 AM CDT LIPASE STAT 05/20/2024 10:56 AM CDT HEPATIC FUNCTION PANEL STAT 05/20/2024 10:56 AM CDT CK TOTAL STAT 05/20/2024 10:56 AM CDT PRO-BNP STAT 05/20/2024 10:56 AM CDT BLOOD GAS,VENOUS STAT 05/20/2024 10:5 6 AM CDT BASIC METABOLIC PANEL STAT 05/20/2024 10:56 AM CDT TROPONIN T (HS) ACUTE W/2HR REFLEX STAT 05/20/2024 10:56 AM CDT D-DIMER,QUANTITATIVE STAT 05/20/2024 10:56 AM CDT CBC WITH AUTO DIFFERENTIAL STAT 05/20/2024 10:56 AM CDT GLUCOSE METER Routine 05/20/2024 10:50 AM CDT EKG 12 LEAD STAT 05/20/2024 10:46 AM CDT MR SPINE LUMBAR WO Routine 05/17/2024 11 :28 AM CDT Lumbar facet arthropathy Foraminal stenosis of lumbar region Lumbar radiculopathy Left leg weakness WHEAT (F4) IGE Routine 05/11/2024 9:05 AM CDT Adverse food reaction, initial encounter SCAN CORRESP-DIAGNOSTICS 05/09/2024 12:00 AM CDT PENICILLIUM CHRYSOGENUM (M1) IGE Routine 05/01/2024 10:06 AM CDT Environmental allergies Allergic rhinitis, unspecified seasonality, unspecified trigger WH[place] (T7) IGE Routine 05/01/2024 10 :06 AM CDT Environmental allergies Allergic rhinitis, unspecified seasonality, unspecified trigger WALNUT TREE (T10) IGE Routine 05/01/2024 10:06 AM CDT Environmental allergies Allergic rhinitis, unspecified seasonality, unspecified trigger MARILOU GRASS (G6) IGE Routine 05/01/2024 10:06 AM CDT Environmental allergies Allergic rhinitis, unspecified seasonality, unspecified trigger MAPLE (BOX ELDER) (T1)IGE Routine 05/01/2024 10:06 AM CDT Environmental allergies Allergic rhinitis, unspecified seasonality, unspecified trigger ELM (T8) IGE Routine 05/01/2024 10:06 AM CDT Environmental allergies Allergic rhinitis, unspecified seasonality, unspecified trigger DOG DANDER (E5) IGE Routine 05/01/2024 1 0:06 AM CDT Environmental allergies Allergic rhinitis, unspecified seasonality, unspecified trigger D FARINAE (D2) IGE Routine 05/01/2024 10 :06 AM CDT Environmental allergies Allergic rhinitis, unspecified seasonality, unspecified trigger D PTERONYSSINUS (D1) IGE Routine 05/01/2024 10:06 AM CDT Environmental allergies Allergic rhinitis, unspecified seasonality, unspecified trigger COMMON RAGWEED (W1) IGE Routine 05/01/2024 10:06 AM CDT Environmental allergies Allergic rhinitis, unspecified seasonality, unspecified trigger CLADOSPORIUM HERBARUM IGE Routine 05/01/2024 10:06 AM CDT Environmental allergies Allergic rhinitis, unspecified seasonality, unspecified trigger CAT DANDER (E1) IGE Routine 05/01/2024 1 0:06 AM CDT Environmental allergies Allergic rhinitis, unspecified seasonality, unspecified trigger BIRCH (T3) IGE Routine 05/01/2024 10:06 AM CDT Environmental allergies Allergic rhinitis, unspecified seasonality, unspecified trigger ASPERGILLUS FUMIGATUS IGE Routine 05/01/2024 10:06 AM CDT Environmental allergies Allergic rhinitis, unspecified seasonality, unspecified trigger ALTERNARIA ALTERNATA (M6) IGE Routine 05/01/2024 10:06 AM CDT Environmental allergies Allergic rhinitis, unspecified seasonality, unspecified trigger AL PERCUTANEOUS TESTS W/ALLERGENIC EXTRACTS Routine 05/01/2024 12:00 AM CDT Environmental allergies Adverse food reaction, initial encounter Allergic rhinitis, unspecified seasonality, unspecified trigger XR MAMMO WHIT BILAT SCREEN Routine 04/07/2023 [...] Recently Relevant to Health Maintenance Results * XR SPINE LUMBAR MINIMUM 4 VIEWS (05/31/2024 11:54 AM CDT) Anatomical Region Laterality Modality Spine, LUMBAR SPINE Digital Radi ography 05/31/2024 11:5 4 AM CDT Impressions 06/01/2024 8:10 AM CDT 5 lumbar type vertebral bodies are used for the purposes of dictation. Vertebral body heights are maintained. There is diffuse facet hypertrophy throughout the lumbar spine. Grade 1 anterior listhesis of L5 on S1 without definitive pars defects. Mild disc height loss at L5-S1. Extraspinal structures are unremarkable. Narrative 06/01/2024 8:10 AM CDT For Patients: As a result of the Cures Act, medical imaging exams and procedure reports are released immediately into your electronic medical record. You may view this report before your referring provider. If you have questions, please contact your health care provider. EXAM: XR SPINE LUMBAR MINIMUM 4 VIEWS LOCATION: [facility] DATE: 05/31/2024 INDICATION: Pain Of Lumbar Spine COMPARISON: 05/17/2024 and 11/04/2023 lumbar spine MRI Procedure Note Andrew Carlisle, DO - 06/01/2024 For Patients: As a result of the Cures Act, medical imagingexams and procedure reports are released immediately into your electronicmedical record. You may view this report before your referring provider.If you have questions, please contact your health care provider. EXAM: XR SPINE LUMBAR MINIMUM 4 VIEWS LOCATION: [facility] DATE: 05/31/2024 INDICATION: Pain Of Lumbar Spine COMPARISON: 05/17/2024 and 11/04/2023 lumbar spine MRI IMPRESSION: 5 lumbar type vertebral bodies are used for the purposes of dictation.Vertebral body heights are maintained. There is diffuse facet hypertrophythroughout the lumbar spine. Grade 1 anterior listhesis of L5 on [id number] definitive pars defects. Mild disc height loss at L5-S1.Extraspinal structures are unremarkable. Marcos Cervantes MD GENERAL IMAGING * XR CHEST 2 VIEWS PA AND LATERAL (05/20/2024 2:02 PM CDT) Anatomical Region Laterality Modality CHEST, THORAX, Lung, HEART Digit al Radiography 05/20/2024 3:17 PM CDT Impressions 05/20/2024 3:17 PM CDT No acute findings and no significant changes from the prior exam. Dictated by Donna Diane MD @ 05/20/2024 3:17:21 PM (Electronically Signed) Narrative 05/20/2024 3:17 PM CDT For Patients: ??As a result of the Cures Act, medical imaging exams and procedure reports are released immediately into your electronic medical record. ??You may view this report before your referring provider. ??If you have questions, please contact your health care provider. INDICATION: Chest pain. TECHNIQUE: Chest 2 views. COMPARISON: Chest radiograph 06/22/2020, CT chest abdomen pelvis 02/12/2023 FINDINGS: Cardiovascular and mediastinum: ??Heart size is normal. ??Unremarkable mediastinum. Lungs and pleural spaces: ??Lungs are clear. ??No sign of infiltrate or mass. ??No sign of pleural effusion. ??No pneumothorax. ?? Bones and soft tissues: ??No significant findings. Procedure Note Donna Diane MD - 05/20/2024 For Patients: As a result of the Cures Act, medical imagingexams and procedure reports are released immediately into your electronicmedical record. You may view this report before your referring provider.If you have questions, please contact your health care provider. INDICATION: Chest pain. TECHNIQUE: Chest 2 views. COMPARISON: Chest radiograph 06/22/2020, CT chest abdomen pelvis 02/12/2023 FINDINGS: Cardiovascular and mediastinum: Heart size is normal. Unremarkablemediastinum. Lungs and pleural spaces: Lungs are clear. No sign of infiltrate ormass. No sign of pleural effusion. No pneumothorax. Bones and soft tissues: No significant findings. IMPRESSION: No acute findings and no significant changes from the prior exam. Dictated by Donna Diane MD @ 05/20/2024 3:17:21 PM (Electronically Signed) Cameron Germain DO GENERAL IMAGING * TROPONIN T (HS) ONE TIME (05/20/2024 12:59 PM CDT) TROPONIN T HS 6 6-10 ng/L ng/L 05/20/2024 1:32 PM CDT [facility] Blood BLOOD SPECIMEN / Unknown Venipuncture / Unknown 05/20/2024 12:59 PM CDT 05/20/2024 1:13 PM CDT Cameron Germain DO CHEMISTRY [facility] [address] [place] [address] * TROPONIN T (HS) ACUTE W/2HR REFLEX (05/20/2024 10:56 AM CDT) [facility] Signature TROPONIN T HS 6 6-10 ng/L ng/L 05/20/2024 11:45 AM CDT [facility] Blood BLOOD SPECIMEN / Unknown Venipuncture / Unknown 05/20/2024 10:56 AM CDT 05/20/2024 11:11 AM CDT [facility] - 05/20/2024 11:45 AM CDT hs-cTnT (Elecsys Troponin T Gen 5) concentration (s) above the sex-specific 99th percentile (16 ng/L or greater for males or 11 ng/L or greater for females) are indicative of myocardial injury. If initial hs-cTnT <=100 ng/L at presentation, a 0h/2h ABSOLUTE (ng/L) delta change (rising or falling) of >=10 ng/L suggests a significant change, whereas a 0h/2h delta change <=3 ng/L suggests no significant change. If initial hs-cTnT >100 ng/L at presentation, a 0h/2h/ RELATIVE (percent, %) delta change of 20% is suggested to distinguish patients with acute vs. chronic myocardial injury. There are multiple etiologies that can cause hs-cTnT increases above the 99th percentile (myocardial injury) other than acute myocardial infarction. Clinical context and careful clinical evaluation are critical for diagnosis and risk-stratification. The diagnosis of acute myocardial infarction requires a rising and/or falling pattern in hs-cTnT concentrations with at least one value above the sex-specific 99th percentile PLUS at least one of the following clinical criteria: ischemic symptoms, new or presumed new significant ST-T wave changes or new LBBB, development of pathological Q waves, imaging evidence of new loss of viable myocardium or new regional wall motion abnormality, or identification of intracoronary atherothrombosis or an acute angiographic culprit on coronary angiography. In appropriate low-risk patients with a non-ischemic electrocardiogram without active chest pain with a symptom onset >3-hours without recurrence, a single initial hs-cTnT<6 ng/L identifies patient with a very low risk in emergency department patient population. Cameron Germain DO CHEMISTRY [facility] [address] [place] [address] * CBC WITH AUTO DIFFERENTIAL (05/20/2024 10:56 AM CDT) WHITE BLOOD COUNT 6.5 4.5 - 11.0 thou/cu mm 05/20/2024 11:14 AM [facility] RED BLOOD COUNT 4.88 4.00 - 5.20 mil/cu mm 05/20/2024 11:14 AM [facility] HEMOGLOBIN 14.6 12.0 - 16.0 g/dL 05/20/2024 11:14 AM [facility] HEMATOCRIT 41.9 33.0 - 51.0 % 05/20/2024 11:14 AM [facility] MCV 86 80 - 100 fL 05/20/2024 11:14 AM [facility] MCH 29.9 26.0 - 34.0 pg 05/20/2024 11:14 AM [facility] MCHC 34.8 32.0 - 36.0 g/dL 05/20/2024 11:14 AM [facility] RDW 12.9 11.5 - 15.5 % 05/20/2024 11:14 AM [facility] PLATELET COUNT 306 140 - 440 thou/cu mm 05/20/2024 11:14 AM [facility] MPV 10.6 6.5 - 11.0 fL 05/20/2024 11:14 AM [facility] % NEUT 66.9 % 05/20/2024 11:14 AM [facility] % LYMPH 26.7 % 05/20/2024 11:14 AM [facility] % MONO 5.5 % 05/20/2024 11:14 AM [facility] % EOS 0.6 % 05/20/2024 11:14 AM [facility] % BASO 0.3 % 05/20/2024 11:14 AM T [facility] ABSOLUTE NEUTROPHILS 4.4 1.7 - 7.0 thou/cu mm 05/20/2024 11:14 AM T [facility] ABSOLUTE LYMPHOCYTES 1.7 0.9 - 2.9 thou/cu mm 05/20/2024 11:14 AM T [facility] ABSOLUTE MONOCYTES 0.4 <0.9 thou/cu mm 05/20/2024 11:14 AM T [facility] ABSOLUTE EOSINOPHILS 0.0 <0.5 thou/cu mm 05/20/2024 11:14 AM [facility] ABSOLUTE BASOPHILS 0.0 <0.3 thou/cu mm 05/20/2024 11:14 AM [facility] Blood BLOOD SPECIMEN / Unknown Venipuncture / Unknown 05/20/2024 10:56 AM CDT 05/20/2024 11:11 AM T Cameron Germain DO HEMATOLOGY [facility] [address] [place] [address] * (ABNORMAL) BLOOD GAS,VENOUS (05/20/2024 10:56 AM CDT) PH, VENOUS 7.48(H) 7.32 - 7.43 05/20/2024 11:14 AM [facility] PCO2, VENOUS 36(L) 41 - 51 mmHg 05/20/2024 11:14 AM [facility] PO2, VENOUS 58(H) 35 - 40 mmHg 05/20/2024 11:14 AM [facility] HCO3,VENOUS 27 22 - 29 mmol/L 05/20/2024 11:14 AM [facility] BASE EXCESS, VENOUS, POCT 3.4(H) -2.0 - 3.0 05/20/2024 11:14 AM [facility] O2 SATURATION, VENOUS 93(H) 70 - 75 % 05/20/2024 11:14 AM CDT [facility] PATIENT TEMPERATURE 37.0 Degrees C 05/20/2024 11:14 AM CDT [facility] Blood VENOUS BLOOD SPECIMEN / Unknown Venipuncture / Unknown 05/20/2024 10:56 AM CDT 05/20/2024 11:11 AM CDT Cameron Germain DO CHEMISTRY Performing Organization Address [facility] Co de Phone Number [facility] [address] [place] [address] * D-DIMER,QUANTITATIVE (05/20/2024 10:56 AM CDT) D-DIMER,QUANTI TATIVE <0.22 See comment FEU mcg/mL 05/20/2024 11:21 AM CDT [facility] Blood BLOOD SPECIMEN / Unknown Venipuncture / Unknown 05/20/2024 10:56 AM CDT 05/20/2024 11:11 AM CDT Narrative [facility] - 05/20/2024 11:21 AM CDT The cut off value for exclusion of Deep Vein Thrombosis and / or Pulmonary Embolism is 0.50 FEU mcg/mL For patients greater than 50 years of age the upper limit is age dependent and was calculated with the formula: ?? (PATIENT AGE x 0.01) FEU mcg/mL = Upper limit of normal range Cameron Germain DO HEMATOLOGY Performing Organization Address [facility] Co de Phone Number [facility] [address] [place] [address] * BRAIN NATRIURETIC PEPTIDE (05/20/2024 10:56 AM CDT) PRO-BNP 37 <125 pg/mL 05/20/2024 11:45 AM CDT [facility] Blood BLOOD SPECIMEN / Unknown Venipuncture / Unknown 05/20/2024 10:56 AM CDT 05/20/2024 11:11 AM CDT Narrative [facility] - 05/20/2024 11:45 AM CDT The following cut-points have been suggested for the use of proBNP for the diagnostic evaluation of heart failure (HF) in patient with acute dyspnea. Patients with eGFR >= 60 Diagnosis (rule in CHF) ? <50 Years Old ?450 pg/mL 50 - 75 Years Old ?900 pg/mL >75 Years Old ? 1800 pg/mL Exclusion (rule out CHF) Age Independent ?300 pg/mL A cutoff of 1200 pg/mL for patients with an eGFR <60 yields a diagnostic sensitivity of 89% and specificity of 72% for acute congestive heart failure. ? Cameron Germain DO SEND OUTS Performing Organization Address [facility] de Phone Number [facility] [address] [place] [address] * (ABNORMAL) LIPASE (05/20/2024 10:56 AM CDT) LIPASE 63.9(H) 13.0 - 60.0 IU/L 05/20/2024 11:45 AM CDT [facility] Blood BLOOD SPECIMEN / Unknown Venipuncture / Unknown 05/20/2024 10:56 AM CDT 05/20/2024 11:11 AM CDT Cameron Germain DO CHEMISTRY Performing Organization Address [facility] Co de Phone Number [facility] [address] [place] [address] * CK TOTAL (05/20/2024 10:56 AM CDT) CK,TOTAL 69 26 - 192 IU/L 05/20/2024 11:45 AM T [facility] Blood BLOOD SPECIMEN / Unknown Venipuncture / Unknown 05/20/2024 10:56 AM CDT 05/20/2024 11:11 AM CDT Cameron Germain DO CHEMISTRY [facility] [address] [place] [address] * (ABNORMAL) HEPATIC FUNCTION PANEL (05/20/2024 10:56 AM CDT) Pathologist [facility] ALBUMIN 4.6 4.0 - 4.9 g/dL 05/20/2024 11:45 AM T [facility] PROTEIN,TOTAL 7.1 6.0 - 8.0 g/dL 05/20/2024 11:45 AM [facility] BILIRUBIN,TOTAL 0.6 0.0 - 1.2 mg/dL 05/20/2024 11:45 AM [facility] BILIRUBIN,DIRECT 0.2 0.0 - 0.2 mg/dL 05/20/2024 11:45 AM [facility] BILIRUBIN,INDIRE CT 0.4 0.2 - 0.8 mg/dL 05/20/2024 11:45 AM [facility] ALK PHOSPHATASE 61 35 - 104 IU/L 05/20/2024 11:45 AM [facility] ALT (SGPT) 68(H) 10 - 35 IU/L 05/20/2024 11:45 AM [facility] AST (SGOT) 52(H) 10 - 35 IU/L 05/20/2024 11:45 AM [facility] Blood BLOOD SPECIMEN / Unknown Venipuncture / Unknown 05/20/2024 10:56 AM CDT 05/20/2024 11:11 AM CDT Cameron Germain DO CHEMISTRY [facility] [address] [place] [address] * (ABNORMAL) BASIC METABOLIC PANEL (05/20/2024 10:56 AM CDT) SODIUM 139 136 - 145 mmol/L 05/20/2024 11:45 AM [facility] POTASSIUM 4.0 3.5 - 5.1 mmol/L 05/20/2024 11:45 AM [facility] CHLORIDE 103 98 - 107 mmol/L 05/20/2024 11:45 AM [facility] CO2,TOTAL 24 22 - 29 mmol/L 05/20/2024 11:45 AM [facility] ANION GAP 12 5 - 18 05/20/2024 11:45 AM [facility] GLUCOSE 116(H) 70 - 99 mg/dL 05/20/2024 11:45 AM [facility] CALCIUM 9.3 8.6 - 10.0 mg/dL 05/20/2024 11:45 AM [facility] BUN 16 6 - 20 mg/dL 05/20/2024 11:45 AM [facility] CREATININE 0.67 0.50 - 0.90 mg/dL 05/20/2024 11:45 AM [facility] BUN/CREAT RATIO 24(H) 10 - 20 11:45 AM [facility] eGFR >90 >90 mL/min/1.7 3m2 05/20/2024 11:45 AM [facility] Comment:As of 2021, eG FR is calculated by the CKD-EPI creatinine equation without race adjustment. ??eGFR can be influenced by muscle mass, exercise, and diet. ??The reported eGFR is an estimation only and is only applicable if the renal function is stable. Blood BLOOD SPECIMEN / Unknown Venipuncture / Unknown 05/20/2024 10:56 AM CDT 05/20/2024 11:11 AM CDT Cameron Germain DO CHEMISTRY Performing Organization Address City/[facility]/ZIP Co de Phone Number [facility] [address] [place] [address] * (ABNORMAL) GLUCOSE METER (05/20/2024 10:50 AM CDT) GLUCOSE METER 106(H) 65 - 100 mg/dL 05/20/2024 10:56 AM CDT [facility] Blood BLOOD SPECIMEN / Unknown 05/20/2024 10:50 AM CDT 05/20/2024 10:56 AM CDT Cameron Germain DO CHEMISTRY Performing Organization Address [facility] Co de Phone Number [facility] [address] [place] [address] * EKG 12 LEAD (05/20/2024 10:46 AM CDT) Interpretation Normal sinus rhythm Possible Left atrial enlargement Borderline ECG When compared with ECG of 13-Dec-2022 00:20, T wave inversion no longer evident in Anterior leads No significant changes from prior [facility] NOW Ventricular Rate 83 BPM [facility] NOW Atrial Rate 83 BPM BEYOND NOW P-R Interval 150 ms BEYOND NOW QRS Duration 76 ms BEYOND NOW QT 386 ms [facility] NOW QTc 453 ms BEYOND NOW P [place] 56 degrees BEYOND NOW R [place] 61 degrees BEYOND NOW T [place] 50 degrees BEYOND NOW 05/20/2024 10:4 6 AM CDT 05/20/2024 12:04 PM CDT Cameron Germain DO EKG ORD Performing Organization Address City/[facility]/ZIP Co de Phone Number [facility] NOW [place], [place] * MR SPINE LUMBAR WO (05/17/2024 11:28 AM CDT) Anatomical Region Laterality Modality Spine, LUMBAR SPINE Magnetic Res onance 05/17/2024 12:4 8 PM CDT Narrative 05/17/2024 12:48 PM CDT For Patients: ??As a result of the Cures Act, medical imaging exams and procedure reports are released immediately into your electronic medical record. ??You may view this report before your referring provider. ??If you have questions, please contact your health care provider. Indication: Low back pain, lumbar radiculopathy. Technique: Multisequence multiplanar MRI of the lumbar spine without the use of intravenous contrast. Comparison: MR lumbar spine dated 11/04/2023. Findings: Normal vertebral alignment and stature. No T1 hypointense infiltrative lesion. Mild edema within the pedicles at L5-S1 the conus medullaris terminates normally at the L1-L2 level. T12-L1, L1-L2, L2-L3, and L3-L4: No significant spinal canal or neural foraminal stenosis. L4-L5: Mild disc desiccation and height loss. Shallow symmetric disc bulge. Mild facet joint arthrosis. No significant spinal canal or right neural foraminal narrowing. Mild left neural foraminal narrowing. L5-S1: Mild disc desiccation and height loss. Shallow symmetric disc bulge. Moderate facet joint hypertrophy with bilateral facet joint effusions. No significant spinal canal stenosis. Mild bilateral neural foraminal narrowing. Impression: 1. Similar mild disc desiccation and height loss at L4-L5 and L5-S1. 2. At L4-L5, similar mild left neural foraminal narrowing. 3. At L5-S1, similar bilateral facet joint effusions, mild stress related edema within the pedicles, and mild bilateral neural foraminal narrowing. Dictated by Roman Marquez MD @ 05/17/2024 12:48:28 PM (Electronically Signed) Procedure Note Teddy Marquez MD - 05/17/2024 For Patients: As a result of the Cures Act, medical imagingexams and procedure reports are released immediately into your electronicmedical record. You may view this report before your referring provider.If you have questions, please contact your health care provider. Indication: Low back pain, lumbar radiculopathy. Technique: Multisequence multiplanar MRI of the lumbar spine without the use ofintravenous contrast. Comparison: MR lumbar spine dated 11/04/2023. Findings: Normal vertebral alignment and stature. No T1 hypointense infiltrativelesion. Mild edema within the pedicles at L5-S1 the conus medullaristerminates normally at the L1-L2 level. T12-L1, L1-L2, L2-L3, and L3-L4: No significant spinal canal or neuralforaminal stenosis. L4-L5: Mild disc desiccation and height loss. Shallow symmetric discbulge. Mild facet joint arthrosis. No significant spinal canal or rightneural foraminal narrowing. Mild left neural foraminal narrowing. L5-S1: Mild disc desiccation and height loss. Shallow symmetric discbulge. Moderate facet joint hypertrophy with bilateral facet jointeffusions. No significant spinal canal stenosis. Mild bilateral neuralforaminal narrowing. Impression: 1. Similar mild disc desiccation and height loss at L4-L5 and L5-S1. 2. At L4-L5, similar mild left neural foraminal narrowing. 3. At L5-S1, similar bilateral facet joint effusions, mild stress relatededema within the pedicles, and mild bilateral neural foraminalnarrowing. Dictated by Roman Marquez MD @ 05/17/2024 12:48:28 PM (Electronically Signed) Humble Lerner MD MR * DANIELA (F4) IGE (05/11/2024 9:05 AM CDT) Pathologist [facility] DANIELA (F4) IGE <0.10 <=0.35 kU/L 05/16/2024 2:20 PM CDT [facility] Blood BLOOD SPECIMEN / Unknown Venipuncture / Unknown 05/11/2024 9:05 AM CDT 05/11/2024 9:05 AM CDT Bogdan Elmore MD SEND OUTS [facility] [address] [place] [address], * SCAN CORRESP-DIAGNOSTICS (05/09/2024 12:00 AM CDT) Scanner OTHER * [place] (T10) IGE ([id number]) (05/01/2024 10:06 AM CDT) [place] (T10) IGE <0.10 <=0.35 kU/L 05/05/2024 1:57 PM CDT [facility] Blood BLOOD SPECIMEN / Unknown Venipuncture / Unknown 05/01/2024 10:06 AM CDT 05/01/2024 10:07 AM CDT Bogdan Elmore MD SEND OUTS Performing Organization Address City/[facility]/ZIP Co de Phone Number [facility] [address] [address], [place] * COMMON RAGWEED (W1) IGE [[id number]] (05/01/2024 10:06 AM CDT) Common Ragweed (W1) IgE <0.10 <=0.35 kU/L 05/05/2024 1:57 PM CDT [facility] Blood BLOOD SPECIMEN / Unknown Venipuncture / Unknown 05/01/2024 10:06 AM CDT 05/01/2024 10:07 AM CDT Bogdan Elmore MD SEND OUTS Performing Organization Address [facility] Co de Phone Number [facility] [address] [place] [address], [place] * ELM (T8) IGE [[id number]] (05/01/2024 10:06 AM CDT) Elm (T8) IgE <0.10 <=0.35 kU/L 05/05/2024 1:57 PM CDT [facility] Blood BLOOD SPECIMEN / Unknown Venipuncture / Unknown 05/01/2024 10:06 AM CDT 05/01/2024 10:07 AM CDT Bogdan Elmore MD SEND OUTS Performing Organization Address City/[facility]/ZIP Co de Phone Number [facility] [address] [place] [address], [place] * MAPLE (BOX ELDER) (T1)IGE [[id number]] (05/01/2024 10:06 AM CDT) IMANLE (BOX ELDER) (T1) IGE <0.10 <=0.35 kU/L 05/05/2024 1:57 PM CDT [facility] Blood BLOOD SPECIMEN / Unknown Venipuncture / Unknown 05/01/2024 10:06 AM CDT 05/01/2024 10:07 AM CDT Bogdan Elmore MD SEND OUTS Performing Organization Address City/[facility]/ZIP Co de Phone Number [facility] [address] [address], [place] * PILO (T3) IGE [[id number]] (05/01/2024 10:06 AM CDT) Pathologist [facility] Pilo (T3) IgE <0.10 <=0.35 kU/L 05/05/2024 1:57 PM CDT [facility] Blood BLOOD SPECIMEN / Unknown Venipuncture / Unknown 05/01/2024 10:06 AM CDT 05/01/2024 10:07 AM CDT Bogdan Elmore MD SEND OUTS Performing Organization Address [facility] Co de Phone Number [facility] [address] [place] [address], [place] * PENICILLIUM CHRYSOGENUM (M1) IGE [[id number]] (05/01/2024 10:06 AM CDT) Pathologist [facility] PENICILLIUM CHRYSOGENUM(M1)I GE <0.10 <=0.35 kU/L 05/05/2024 1:57 PM CDT [facility] Blood BLOOD SPECIMEN / Unknown Venipuncture / Unknown 05/01/2024 10:06 AM CDT 05/01/2024 10:07 AM CDT Bogdan Elmore MD SEND OUTS Performing Organization Address City/[facility]/ZIP Co de Phone Number [facility] [address] [address], [place] * D PTERONYSSINUS (D1) IGE [[id number]] (05/01/2024 10:06 AM CDT) D. Pteronyssinus (D1) IgE <0.10 <=0.35 kU/L 05/05/2024 1:57 PM CDT [facility] Blood BLOOD SPECIMEN / Unknown Venipuncture / Unknown 05/01/2024 10:06 AM CDT 05/01/2024 10:07 AM CDT Bogdan Elmore MD SEND OUTS Performing Organization Address City/[facility]/ZIP Co de Phone Number [facility] [address] [place] [address], [place] * ASPERGILLUS FUMIGATUS IGE [[id number]] (05/01/2024 10:06 AM CDT) Aspergillus Fumigatus (M3) IGE <0.10 <=0.35 kU/L 05/05/2024 1:57 PM CDT [facility] Blood BLOOD SPECIMEN / Unknown Venipuncture / Unknown 05/01/2024 10:06 AM CDT 05/01/2024 10:07 AM CDT Bogdan Elmore MD SEND OUTS Performing Organization Address City/[facility]/ZIP Co de Phone Number [facility] [address] [place] [address], [place] * MARILOU GRASS (G6) IGE [[id number]] (05/01/2024 10:06 AM CDT) MARILOU GRASS (G6) IGE <0.10 <=0.35 kU/L 05/05/2024 1:57 PM CDT [facility] Blood BLOOD SPECIMEN / Unknown Venipuncture / Unknown 05/01/2024 10:06 AM CDT 05/01/2024 10:07 AM CDT Bogdan Elmore MD SEND OUTS [facility] [address] [address], [place] * CLADOSPORIUM HERBARUM IGE [[id number]] (05/01/2024 10:06 AM CDT) Cladosporium herbarum (M2) IgE <0.10 <=0.35 kU/L 05/05/2024 1:57 PM CDT [facility] Blood BLOOD SPECIMEN / Unknown Venipuncture / Unknown 05/01/2024 10:06 AM CDT 05/01/2024 10:07 AM CDT Bogdan Elmore MD SEND OUTS Performing Organization Address [facility] Co de Phone Number [facility] [address] [address], [place] * [place] (T7) IGE [[id number]] (05/01/2024 10:06 AM CDT) [place] (T7) IGE <0.10 <=0.35 kU/L 05/05/2024 1:57 PM CDT [facility] Blood BLOOD SPECIMEN / Unknown Venipuncture / Unknown 05/01/2024 10:06 AM CDT 05/01/2024 10:07 AM CDT Bogdan Elmore MD SEND OUTS Performing Organization Address City/[facility]/ZIP Co de Phone Number [facility] [address] [address], [place] * DOG DANDER (E5) IGE [[id number]] (05/01/2024 10:06 AM CDT) Dog Dander (E5) IgE <0.10 <=0.35 kU/L 05/05/2024 1:57 PM CDT [facility] Blood BLOOD SPECIMEN / Unknown Venipuncture / Unknown 05/01/2024 10:06 AM CDT 05/01/2024 10:07 AM CDT Bogdan Elmore MD SEND OUTS Performing Organization Address [facility] de Phone Number [facility] [address] [address], [place] * ALTERNARIA ALTERNATA (M6) IGE [[id number]] (05/01/2024 10:06 AM CDT) Alternaria Alternata IGE <0.10 <=0.35 kU/L 05/05/2024 1:57 PM CDT [facility] Blood BLOOD SPECIMEN / Unknown Venipuncture / Unknown 05/01/2024 10:06 AM CDT 05/01/2024 10:07 AM CDT Bogdan Elmore MD SEND OUTS Performing Organization Address [facility] de Phone Number [facility] [address] [place] [address], [place] * D FARINAE (D2) IGE [[id number]] (05/01/2024 10:06 AM CDT) D. Farinae (D2) IgE <0.10 <=0.35 kU/L 05/05/2024 1:57 PM CDT [facility] Blood BLOOD SPECIMEN / Unknown Venipuncture / Unknown 05/01/2024 10:06 AM CDT 05/01/2024 10:07 AM CDT Bogdan Elmore MD SEND OUTS Performing Organization Address [facility] Co de Phone Number [facility] [address] [place] [address], [place] * CAT DANDER (E1) IGE [[id number]] (05/01/2024 10:06 AM CDT) Cat Dander (E1) IgE <0.10 <=0.35 kU/L 05/05/2024 1:57 PM CDT [facility] Blood BLOOD SPECIMEN / Unknown Venipuncture / Unknown 05/01/2024 10:06 AM CDT 05/01/2024 10:07 AM CDT Bogdan Elmore MD SEND OUTS [facility] [address] [place] [address], * AL PERCUTANEOUS TESTS W/ALLERGENIC EXTRACTS (05/01/2024 12:00 AM CDT) Bogdan Elmore MD PB - ALLERGY AND I MMUNOLOGY SERVICES * XR MAMMO WHIT BILAT SCREEN (04/07/2023 [...] For Patients: As a result of the Century Cures Act, medical imaging exams and procedure reports are released immediately into your electronic medical record. You may view this report before your referring provider. If you have questions, please contact your health care provider. XR MAMMO WHIT BILAT SCREEN [[id number]] CLINICAL HISTORY: ??This is an asymptomatic 52 [...] or areas of architectural distortion. Serene Toussaint CARPENTER MOLD MAMMO * LC HCV ANTIBODY RFX TO QUANT PCR (04/06/2023 9:19 AM CDT) HCV Ab Non Reactive Non Reactive 04/08/2023 12:08 PM CDT [facility] ([facility]) Blood BLOOD SPECIMEN / Unknown Venipuncture / Unknown 04/06/2023 9:19 AM CDT 04/06/2023 9:22 AM CDT [facility] ([facility]) - 04/08/2023 12:08 PM CDT Performed at: ??[address] ??[id number] Hardware Design Engineer: Benjamin Chand MD, Phone: ??[phone] Sernee Toussaint NP LABORATORY Performing Organization Address [facility] Co de Phone Number [facility] (CET) [address] [place] [address] * LC HIV-1/O/2, 4TH GENERATION (04/06/2023 9:19 AM CDT) HIV Scr 4th Gen Non Reactive Non Reactive 04/08/2023 1:10 PM CDT [facility] ([facility]) Comment: HIV Negative HIV-1/HIV-2 antibodies and HIV-1 p24 antigen were NOT detected. There is no laboratory evidence of HIV infection. Blood BLOOD SPECIMEN / Unknown Venipuncture / Unknown 04/06/2023 9:19 AM CDT 04/06/2023 9:22 AM CDT [facility] ([facility]) - 04/08/2023 1:10 PM CDT Performed at: ??[address] ??[id number] Hardware Design Engineer: Benjamin Chand MD, Phone: ??[phone] Serene Toussaint NP LABORATORY Performing Organization Address [facility]/ZIP Co de Phone Number [facility] (CET) [address] [place] [address], * (ABNORMAL) LIPID PANEL W REFLEX MEASURED LDL (04/06/2023 9:19 AM CDT) CHOLESTEROL,TOTAL 249(H) 100 - 199 mg/dL 04/06/2023 9:57 AM T [facility] TRIGLYCERIDES 197(H) <150 mg/dL 04/06/2023 9:57 AM T [facility] HDL CHOLESTEROL 49 >40 mg/dL 9:57 AM T [facility] NON-HDL CHOLESTEROL 200(H) <145 mg/dl 04/06/2023 9:57 AM T [facility] CHOL/HDL RATIO 5.08(H) <4.50 04/06/2023 9:57 AM CDT [facility] LDL CHOLESTEROL 161(H) <=130 mg/dL 04/06/2023 9:57 AM T [facility] VLDL CHOLESTEROL 39(H) <=30 mg/dL 04/06/2023 9:57 AM T [facility] PROVIDER ORDERED STATUS RANDOM 04/06/2023 9:57 AM T [facility] Blood BLOOD SPECIMEN / Unknown Venipuncture / Unknown 04/06/2023 9:19 AM CDT 04/06/2023 9:22 AM CDT Serene Toussaint NP CHEMISTRY Performing Organization Address [facility]/State/[facility] Co de Phone Number [facility] [address] [place] [address] * COLONOSCOPY (12/09/2022 10:33 AM CDT) 12/09/2022 [...] adequate candidate for conscious sedation. The endoscope [id number] was passed through the anus andadvanced to [...] 1:30 PM 03/09/2011 10:00 PM Care Teams Java Spring Developer Relationship Specialty Start Date End Date Serene Toussaint NP [address] [place] [address] [place] [address] PCP - General Nurse Practitioner - Family 07/12/23
== END 2024-06-06 07:57 | disposition home or self-care (01) ==
LOC: INJ CL 07:57
PROVIDERS: PCP Family Medicine; Visit Provider Family Medicine
DX: M54.16 Radiculopathy, lumbar region (principal)
CPT/HCPCS: 64483; J1100; Q9966

== ENCOUNTER 2024-09-08 14:31 | Outpatient (CLI) | payer BC, SELFPAY | END 2024-09-08 14:32 | disposition home or self-care (01) | LOC: INJ CL 14:31 | PROVIDERS: PCP Family Medicine; Visit Provider Family Medicine | DX: M54.16 Radiculopathy, lumbar region (principal); M47.9 Spondylosis, unspecified | CPT/HCPCS: 64483; 64493; J1100; J2250; J3010; Q9966 ==

== ENCOUNTER 2025-06-18 11:18 | Outpatient (CLI) | payer BC, SELFPAY | END 2025-06-18 11:19 | disposition home or self-care (01) | LOC: FBOREF 11:20 | PROVIDERS: PCP Family Medicine; Visit Provider Family Medicine | DX: E78.5 Hyperlipidemia, unspecified (principal) | CPT/HCPCS: 80061 ==